=== PATIENT | female | born 2000 ===

== ENCOUNTER 2019-07-31 21:12 | Emergency (ER) | payer OTHER ==
[2019-07-31] MEDS ORDERED: Acetaminophen 500 MG TAB ONE (21:40)
[2019-07-31 21:54] LABS: #Eosinphils 0.2 thou/uL (0.0-0.7); #Lymphocytes 1.9 thou/uL (1.20-3.40); #Monocytes 0.5 thou/uL (0.11-0.59); #Neutrophils 1.3 thou/uL (1.40-6.50); %Basophils 0.9 % (0.0-1.0); %Eosinophils 3.9 % (0.0-10.0); %Lymphocytes 47.9 % (28.0-48.0); %Monocytes 13.5 % (0.0-4.0); %Neutrophils 33.8 % (31.0-61.0); Hemoglobin 12.8 g/dL (12.0-16.0); Mean Corpuscular HGB CONC 32.1 g/dL (32.0-36.0); Mean Corpuscular Hemoglobin 29.8 pg (25.0-35.0); Mean Corpuscular Volume 92.9 fL (78.0-98.0); Mean Platelet Volume 7.8 fL (7.4-10.4); Platelet Count 232 thou/uL (130-400); RBC Distribution Width 11.9 % (11.5-14.5); Red Blood Cell (RBC) Count 4.31 mill/uL (4.00-5.20)
[2019-07-31 22:11] LABS: ALT (SGPT) 17 U/L (8-55); AST (SGOT) 21 U/L (5-34); Albumin 4.2 g/dL (3.5-5.0); Alkaline Phosphatase 72 U/L (40-100); Anion Gap 13 mmol/L (10-20); BUN (Urea Nitrogen) 15 mg/dL (7.0-18.7); Bilirubin, Total 0.4 mg/dL (0.2-1.2); CK (CPK) 136 U/L (29-168); Calc. Creatinine Clearance 0 mL/min (70-130); Calcium 9.2 mg/dL (7.8-10.44); Carbon Dioxide 25 mmol/L (22-29); Chloride 107 mmol/L (98-107); Estimated GFR-MDRD Greater than 90; Globulin 3.8 g/dL (2.4-3.5); Glucose 84 mg/dL (70-105); Lipase 21 U/L (8-78); Potassium 3.5 mmol/L (3.5-5.1); Sodium 141 mmol/L (136-145)
[2019-07-31 22:17] LABS: Bilirubin Small (Negative); Blood, Urine Large (Negative); Clarity Cloudy (Clear); Glucose, Urine (Dipstick) Negative (Negative); Leukocyte Small (Negative); Nitrite Negative (Negative); Pregnancy Test - Urine (BHCG) Negative (Negative); Protein, Urine (Dipstick) 30 mg/dL (Neg-Trace); Specific Gravity 1.032 (1.002-1.036); Urobilinogen 0.2 mg/dL (Less than 2)
[2019-07-31 22:18] LABS: Pregu Control Background? CLEAR/WHITE (CLR/WHITE); Pregu Control Bar Appear? YES (CONTROL BAR)
--- NOTE | 2019-07-31 22:23 | RAD ---
EXAM: Chest PA and lateral: HISTORY: Cough sore throat frontal headache COMPARISON: None FINDINGS: Heart size:Within normal limits. Lungs:Clear of acute process. No confluent pneumonia, overt edema, pleural effusion, or other acute process. IMPRESSION: No significant acute intrathoracic disease.
[2019-07-31 22:24] LABS: Bacteria/HPF 4+ HPF (None Seen); Mucous/LPF 2+ LPF (<2+)
--- NOTE | 2019-07-31 22:54 | CT ---
Exam: Brain CT without IV contrast: HISTORY: Headache, history of epilepsy sore throat cough bodyaches COMPARISON: None FINDINGS: 0.8 cm diameter densely calcific focus in the right frontal lobe without evidence for associated surr ounding abnormal attenuation. No evidence of mass effect. No evidence for acute hemorrhage. IMPRESSION: 0.8 cm diameter calcific focus in the right frontal lobe white matter region, nonspecific. No associa koffi other abnormal attenuation or mass effect or acute hemorrhage. Follow-up nonemergent MRI exam with and without IV contrast is suggested, unless this abnormal calcif ic focus has been previously diagnosed and evaluated and can be shown to be stable.
== END 2019-07-31 22:58 | disposition home or self-care (01) ==
LOC: SCSER 21:12
DX: I10 Essential (primary) hypertension (principal); B34.9 Viral infection, unspecified; G40.909 Epilepsy, unspecified, not intractable, without status epilepticus; Z79.899 Other long term (current) drug therapy
CPT/HCPCS: 70450; 71046; 80053; 81003; 81015; 81025; 82550; 83690; 84484; 85025; 87081; 87086; 87430; 87804; 93005